=== PATIENT | female | born 1980 | race Caucasian/White ===

== ENCOUNTER 2020-07-04 13:27 | Emergency (ER) | payer BC ==
[~2020-07-04] VITALS: Ht 160 cm; Wt 108.9 kg
[2020-07-04 13:32] VITALS: Ht 160 cm; Wt 108.9 kg
[2020-07-04] MEDS ORDERED: IBU600 M2 PO (14:57)
[2020-07-04 15:19] VITALS: BP 110/62
== END 2020-07-04 15:32 | disposition home or self-care (01) ==
LOC: ED 13:27
DX: S63.502A Unspecified sprain of left wrist, initial encounter (principal); F41.9 Anxiety disorder, unspecified; R07.89 Other chest pain; R20.0 Anesthesia of skin; W40.8XXA Explosion of other specified explosive materials, initial encounter; Y93.89 Activity, other specified; Y92.89 Other specified places as the place of occurrence of the external cause; Y99.8 Other external cause status